=== PATIENT | female | born 1985 | race Caucasian/White ===

== ENCOUNTER 2018-06-24 09:50 | Inpatient (IN) | payer OTHER ==
[~2018-06-24] VITALS: Ht 161 cm; Wt 73.5 kg
[2018-06-24] MEDS ORDERED: RINGERS SOLUTION,LACTATED 1,000 ML IV ONE (10:01)
[2018-06-24] MEDS ORDERED: CITRIC ACID/SODIUM CITRATE 30 ML SOLUTION UDCUP PO ONE (10:15)
[2018-06-24] MEDS ORDERED: METOCLOPRAMIDE HCL 5 MG/ML 2 ML VIAL IVP ONE (10:15)
[2018-06-24 10:37] LABS: BASOPHILS % (AUTO) 0.1 % (0.0-2.0); EOSINOPHILS % (AUTO) 1.3 % (1.0-6.0); HEMATOCRIT 34.6 % (36-46); HEMOGLOBIN 11.6 g/dL (12.0-16.0); LYMPHOCYTES # (AUTO) 1.8 K/uL (1.0-4.8); LYMPHOCYTES % (AUTO) 19.4 % (22.0-44.0); MEAN CORPUSCULAR HEMOGLOBIN 30.6 pg (26.0-34.0); MEAN CORPUSCULAR HGB CONC 33.6 G/dL (31.0-37.0); MEAN CORPUSCULAR VOLUME 91 fL (80-100); MONOCYTES # (AUTO) 0.8 K/uL (0.1-1.0); MONOCYTES % (AUTO) 8.7 % (2.0-9.0); NEUTROPHILS # (AUTO) 6.4 K/uL (1.8-7.7); NEUTROPHILS % (AUTO) 70.5 % (40.0-70.0); PLATELET COUNT (AUTO)-OB 273 K/uL (150-450); RED CELL DISTRIBUTION WIDTH 13.4 % (11.5-14.5)
[2018-06-24] MEDS ORDERED: 0.9% SODIUM CHLORIDE 10 ML VIAL IVP ONE (12:00)
[2018-06-24] MEDS ORDERED: EPHEDrine SULFATE 50 MG/ML VIAL IM ONE (12:00)
[2018-06-24] MEDS ORDERED: OXYTOCIN 10 UNITS/ML VIAL IM ONE (12:00)
[2018-06-24] MEDS ORDERED: FentaNYL CITRATE-PF 100 MCG/2 ML VIAL ONE ×2 (12:44→13:42)
[2018-06-24] MEDS ORDERED: MORPHINE SULFATE/PF 0.5 MG/ML 10 ML AMP ONE (12:45)
[2018-06-24] MEDS ORDERED: BUPIVACAINE HCL/DEX-WATER/PF 0.75% 2 ML AMP ONE (12:45)
[2018-06-24] MEDS ORDERED: ACETAMINOPHEN 1000 MG/ISO-OSM 100 ML IV ONE (12:45)
[2018-06-24] MEDS ORDERED: MEPERIDINE-PF 25 MG/ML VIAL IVP PRN (13:30)
[2018-06-24] MEDS ORDERED: DiphenhydrAMINE HCL 50 MG/ML VIAL IVP PRN (13:30)
[2018-06-24] MEDS ORDERED: OxyCODONE HCL/ACETAMINOPHEN 10-325 MG TABLET PO PRN (13:30)
[2018-06-24] MEDS ORDERED: HYDROmorphone 2 MG/ML SYRINGE IVP PRN ×2 (13:30)
[2018-06-24] MEDS ORDERED: ONDANSETRON HCL 4 MG/2 ML VIAL IVP PRN (13:30)
[2018-06-24] MEDS ORDERED: FentaNYL CITRATE-PF 100 MCG/2 ML VIAL IVP PRN ×2 (13:30)
[2018-06-24] MEDS ORDERED: NALOXONE HCL 0.4 MG/ML VIAL IVP PRN (13:30)
[2018-06-24] MEDS ORDERED: ACETAMINOPHEN/CODEINE 300-30 MG TABLET PO PRN ×2 (13:45)
[2018-06-24] MEDS ORDERED: LANOLIN 7 GM OINTMENT TP PRN (13:45)
[2018-06-24] MEDS ORDERED: PNEUMOCOCCAL VACCINE POLYVALENT 0.5 ML VIAL [PPSV23] IM ONE (14:45)
[2018-06-24] MEDS: DEXTROSE 5%-0.45% SODIUM CHL 1,000 ML IV SCH ×3 (15:08→23:32)
[2018-06-24] MEDS ORDERED: PREN1TAB80 PO (17:53)
[2018-06-24] MEDS ORDERED: DEXTROSE 5%-0.2% SODIUM CHL 1,000 ML IV ONE (19:14)
[2018-06-24] MEDS: ACETAMINOPHEN 500 MG TABLET PO SCH (19:29)
[2018-06-25] MEDS: ACETAMINOPHEN 500 MG TABLET PO SCH ×2 (01:30→07:59)
[2018-06-25] MEDS: DEXTROSE 5%-0.45% SODIUM CHL 1,000 ML IV SCH (03:37)
[2018-06-25] MEDS: IBUPROFEN 800 MG TABLET PO SCH ×2 (09:18→16:11)
[2018-06-25] MEDS: MAGNESIUM HYDROXIDE SUSPENSION 30 ML UDCUP PO SCH ×2 (09:18→20:59)
[2018-06-26] MEDS: IBUPROFEN 800 MG TABLET PO SCH ×3 (00:07→17:45)
[2018-06-26] MEDS: MAGNESIUM HYDROXIDE SUSPENSION 30 ML UDCUP PO SCH (21:24)
[2018-06-27] MEDS: IBUPROFEN 800 MG TABLET PO SCH ×2 (00:21→06:12)
[2018-06-27] MEDS ORDERED: IBUP-2071 PO (10:09)
[2018-06-27] MEDS ORDERED: DSS100 PO (10:10)
[2018-06-27] MEDS ORDERED: FERR-89 PO (10:11)
== END 2018-06-27 12:15 | disposition home or self-care (01) | DRG 788 ==
LOC: OBSVTOIN 09:50 → 4S 09:50
PROVIDERS: ADMIT Obstetrics & Gynecology; ATTEND Obstetrics & Gynecology
PROC: 10D00Z1 Extraction of Products of Conception, Low, Open Approach (ICD-10-PCS; principal; 2018-06-24)
DX: O34.211 Maternal care for low transverse scar from previous cesarean delivery (principal); Z3A.39 39 weeks gestation of pregnancy; Z37.0 Single live birth
CPT/HCPCS: 86850; 86900; 86901; 87081; J0131; J0690; J1200; J2274; J2590; J2765; J3010; J3490; J7120